=== PATIENT | male | born 1995 | race Hispanic/Latino ===

== ENCOUNTER 2018-07-09 17:43 | Emergency (ER) | payer BC, OTHER ==
[2018-07-09 18:30] LABS: Bilirubin Negative (Negative); Blood, Urine Negative (Negative); Clarity CLEAR (Clear); Glucose, Urine (Dipstick) Negative (Negative); Leukocyte Negative (Negative); Nitrite Negative (Negative); Protein, Urine (Dipstick) Negative (Neg-Trace); Specific Gravity, Urine 1.022 (1.002-1.036); Urobilinogen 0.2 mg/dL (0.2-1.0); pH, Urine 6.5 (5.0-9.0)
[2018-07-09 18:34] LABS: #Eosinphils 0.1 thou/uL (0.0-0.7); #Lymphocytes 1.7 thou/uL (1.20-3.40); #Monocytes 0.7 thou/uL (0.11-0.59); #Neutrophils 7.7 thou/uL (1.40-6.50); %Basophils 0.3 % (0.0-1.0); %Eosinophils 0.7 % (0.0-10.0); %Monocytes 6.3 % (0.0-4.0); %Neutrophils 75.7 % (31.0-61.0); Hemoglobin 14.9 g/dL (14.0-18.0); Mean Corpuscular HGB CONC 34.2 g/dL (32.0-36.0); Mean Corpuscular Hemoglobin 31.3 pg (25.0-35.0); Mean Corpuscular Volume 91.5 fL (78.0-98.0); Mean Platelet Volume 7.7 fL (7.4-10.4); Platelet Count 274 thou/uL (130-400); RBC Distribution Width 11.6 % (11.5-14.5); Red Blood Cell (RBC) Count 4.77 mill/uL (4.00-5.20); White Blood Cell (WBC) Count 10.2 thou/uL (4.8-10.8)
[2018-07-09 18:56] LABS: ALT (SGPT) 11 U/L (8-55); AST (SGOT) 13 U/L (5-34); Albumin 4.6 g/dL (3.5-5.0); Alkaline Phosphatase 55 U/L (Less than 750); Anion Gap 13 mmol/L (10-20); BUN (Urea Nitrogen) 12 mg/dL (8.9-20.6); Bilirubin, Total 0.4 mg/dL (0.2-1.2); Calc. Creatinine Clearance 0 mL/min (70-130); Calcium 9.5 mg/dL (7.8-10.44); Carbon Dioxide 24 mmol/L (22-29); Chloride 104 mmol/L (98-107); Estimated GFR-MDRD Greater than 90; Globulin 2.8 g/dL (2.4-3.5); Glucose 87 mg/dL (70-105); Lipase 10 U/L (8-78); Potassium 3.6 mmol/L (3.5-5.1); Protein, Total 7.4 g/dL (6.0-8.3); Sodium 137 mmol/L (136-145)
--- NOTE | 2018-07-09 19:29 | ULT ---
Testicular ultrasound. HISTORY: Testicular pain for 2 days. Multiple longitudinal and transverse images of the testicles are obtained using multi hertz linear ar ray transducer. Real-time, color flow and spectral waveform Doppler analysis demonstrates areas of hyperechogenicity seen in the right testicle compatible with testicular microlithiasis. The right testicle measures 4.7 x 2.8 x 2.7 cm and contains a heterogeneous mass measuring measuring 2.5 x 2.0 x 2.0 cm. This lesion is within the right testicular parenchyma. It is partially calcified and has hypoechoic, calcified and cystic components. Malignancy is certainly within the dif ferential diagnosis. Surgical consultation recommended. The left testicle is unremarkable with good blood flow. The right epididymis measures 1.3 x 1.4 x 1.1 cm while the left epididymis measures 1.0 1.2 x 1.0 cm. The right epididymis also has a cyst measuring 6 x 4 x 7 mm. IMPRESSION: Heterogeneous right intraparenchymal testicular mass. Differential diagnosis certainly in cludes neoplasm. Urologic consultation recommended.
[2018-07-13 00:14] LABS: Chlam.trachomatis by PCR,Urine Not Detected (NotDetected)
== END 2018-07-09 20:24 | disposition home or self-care (01) ==
LOC: ERS 17:43
DX: N50.9 Disorder of male genital organs, unspecified (principal); R10.30 Lower abdominal pain, unspecified
CPT/HCPCS: 36415; 76870; 80053; 81003; 82105; 83605; 83690; 84075; 84702; 85025; 87491; 87591; 93976